=== PATIENT | female | born 1985 | race Caucasian/White ===

== ENCOUNTER 2017-11-21 17:25 | Emergency (ER) | payer MEDICAID ==
[~2017-11-21] VITALS: Ht 170.2 cm; Wt 96.1 kg
[~2017-11-21 17:25] MED LIST: PANT-47 PO; [UNRECOGNIZED DRUG - CODE] PO
[2017-11-21 18:02] VITALS: BP 127/78
[2017-11-21] MEDS ORDERED: KEN0.1O TP (19:36)
== END 2017-11-21 19:49 | disposition home or self-care (01) ==
LOC: ER 17:26
DX: L65.9 Nonscarring hair loss, unspecified (principal); Z90.49 Acquired absence of other specified parts of digestive tract; Z88.8 Allergy status to other drugs, medicaments and biological substances; Z79.2 Long term (current) use of antibiotics; Z79.899 Other long term (current) drug therapy
CPT/HCPCS: 99283

== ENCOUNTER 2019-05-04 23:02 | Emergency (ER) | payer MEDICAID ==
[~2019-05-04] VITALS: Ht 170.2 cm; Wt 82.7 kg
[2019-05-04 23:12] VITALS: BP 125/83
== END 2019-05-05 00:58 | disposition left against medical advice (07) ==
LOC: ER 23:03
DX: O03.9 Complete or unspecified spontaneous abortion without complication (principal); Z3A.01 Less than 8 weeks gestation of pregnancy; Z53.21 Procedure and treatment not carried out due to patient leaving prior to being seen by health care provider

== ENCOUNTER 2019-09-11 07:38 | Emergency (ER) | payer MEDICAID ==
[~2019-09-11] VITALS: Ht 170.2 cm; Wt 84.6 kg
[2019-09-11 07:47] VITALS: BP 141/72
[2019-09-11] MEDS ORDERED: AMOX500C2 PO (08:41)
== END 2019-09-11 08:48 | disposition home or self-care (01) ==
LOC: ER 07:39
DX: S00.412A Abrasion of left ear, initial encounter (principal); K08.89 Other specified disorders of teeth and supporting structures; K03.81 Cracked tooth; Z90.49 Acquired absence of other specified parts of digestive tract; Z88.8 Allergy status to other drugs, medicaments and biological substances; Z79.2 Long term (current) use of antibiotics; Z79.899 Other long term (current) drug therapy; X58.XXXA Exposure to other specified factors, initial encounter; Y93.89 Activity, other specified; Y92.009 Unspecified place in unspecified non-institutional (private) residence as the place of occurrence of the external cause; Y99.8 Other external cause status
CPT/HCPCS: 99283

== ENCOUNTER 2020-07-05 00:36 | Emergency (ER) | payer MEDICAID, OTHER ==
[~2020-07-05] VITALS: Ht 170.2 cm; Wt 74.1 kg
[2020-07-05 00:39] VITALS: BP 117/86
== END 2020-07-05 01:27 ==
LOC: ER 00:36
DX: S40.012A Contusion of left shoulder, initial encounter (principal); S09.90XA Unspecified injury of head, initial encounter; Z90.49 Acquired absence of other specified parts of digestive tract; Z88.8 Allergy status to other drugs, medicaments and biological substances; Z79.899 Other long term (current) drug therapy; W18.39XA Other fall on same level, initial encounter; Y93.89 Activity, other specified; Y92.89 Other specified places as the place of occurrence of the external cause; Y99.8 Other external cause status
CPT/HCPCS: 70450; 73030; 99284

== ENCOUNTER 2020-12-16 13:13 | Emergency (ER) | payer MEDICAID, OTHER ==
[~2020-12-16] VITALS: Ht 170.2 cm; Wt 74.1 kg
[2020-12-16 13:58] VITALS: BP 160/103
[2020-12-16] MEDS ORDERED: IBUP-1984 PO (14:12)
[2020-12-16] MEDS ORDERED: CLIN300C70 PO (14:12)
== END 2020-12-16 14:20 | disposition home or self-care (01) ==
LOC: ER 13:13
DX: K08.89 Other specified disorders of teeth and supporting structures (principal); Z90.89 Acquired absence of other organs; Z88.8 Allergy status to other drugs, medicaments and biological substances; Z79.2 Long term (current) use of antibiotics; Z79.899 Other long term (current) drug therapy
CPT/HCPCS: 99283

== ENCOUNTER 2021-10-08 22:39 | Emergency (ER) | payer MEDICAID, OTHER ==
[~2021-10-08] VITALS: Ht 170.2 cm; Wt 85.9 kg
[~2021-10-08 22:39] MED LIST changes: +[UNRECOGNIZED DRUG - CODE] PO; -[UNRECOGNIZED DRUG - CODE] PO
[2021-10-08 22:47] VITALS: BP 107/60
[2021-10-08 23:15] LABS: BASOPHILS % (AUTO) 0.4 % (0-1); EOSINOPHILS # (AUTO) 0.2 X10'3 (0-0.9); EOSINOPHILS % (AUTO) 2.2 % (0-6); HEMOGLOBIN 13.1 g/dl (12.0-16.0); LYMPHOCYTES # (AUTO) 3.4 X10'3 (1.1-4.8); LYMPHOCYTES % (AUTO) 33.8 % (21-51); MEAN CORPUSCULAR HEMOGLOBIN 31.2 PG (27.0-31.0); MEAN CORPUSCULAR HGB CONC 35.3 g/dL (33.0-36.5); MEAN CORPUSCULAR VOLUME 88.5 FL (78-98); MEAN PLATELET VOLUME 7.5 FL (7.4-10.4); MONOCYTES # (AUTO) 0.7 X10'3 (0-0.9); MONOCYTES % (AUTO) 7.3 % (2-12); NEUTROPHILS # (AUTO) 5.7 X10'3 (1.8-7.7); NEUTROPHILS % (AUTO) 56.3 % (42-75); PLATELET COUNT 271 X10'3 (140-440); RED BLOOD COUNT 4.19 X10'6 (4.20-5.60); RED CELL DISTRIBUTION WIDTH 12.5 % (11.5-14.5)
[2021-10-08 23:24] LABS: ALANINE AMINOTRANSFERASE 26 U/L (12-78); ALBUMIN 3.8 G/DL (3.4-5.0); ALBUMIN/GLOBULIN RATIO 1.1 (1.1-1.5); ALKALINE PHOSPHATASE 80 IU/L (46-116); ANION GAP 7 (8-16); ASPARTATE AMINO TRANSFERASE 19 U/L (10-37); BILIRUBIN,TOTAL 0.4 MG/DL (0.1-1.0); BLOOD UREA NITROGEN 19 MG/DL (7-18); BUN/CREATININE RATIO 25.3 (6.6-38.0); CALCIUM 8.4 MG/DL (8.5-10.1); CHLORIDE 106 MMOL/L (99-107); CREATININE 0.75 MG/DL (0.40-0.90); GLUCOSE 111 MG/DL (70-104); POTASSIUM 3.5 MMOL/L (3.5-5.1); SODIUM 144 MMOL/L (135-145); TOTAL PROTEIN 7.4 G/DL (6.4-8.2); eGFR 88 ML/MIN
[2021-10-08 23:27] LABS: LIPASE 121 U/L (73-393)
== END 2021-10-09 00:41 | disposition left against medical advice (07) ==
LOC: ER 22:39
DX: R07.89 Other chest pain (principal); Z53.21 Procedure and treatment not carried out due to patient leaving prior to being seen by health care provider
CPT/HCPCS: 36415; 80053; 83690; 84484; 85025; 93005

== ENCOUNTER 2022-08-14 10:32 | Emergency (ER) | payer MEDICAID ==
[~2022-08-14] VITALS: Ht 170.2 cm; Wt 90.0 kg
[2022-08-14 10:44] VITALS: BP 172/143
[2022-08-14] MEDS ORDERED: dexamethasone sod phosphate 10mg/ml inj IM STA (10:47)
[2022-08-14] MEDS ORDERED: famotidine 20mg tablet PO ONE (10:50)
[2022-08-14] MEDS ORDERED: diphenhydrAMINE 25mg capsule PO ONE (10:50)
== END 2022-08-14 11:16 | disposition home or self-care (01) ==
LOC: ER 10:33
DX: L23.5 Allergic contact dermatitis due to other chemical products (principal); Z88.8 Allergy status to other drugs, medicaments and biological substances; Z79.899 Other long term (current) drug therapy
CPT/HCPCS: 96372; 99283; J1100; Q0163

== ENCOUNTER → 2023-08-21 | Outpatient (CLI) | payer MEDICAID ==
[~2023-08-21] MED LIST changes: +[UNRECOGNIZED DRUG - CODE] PO; -[UNRECOGNIZED DRUG - CODE] PO
== END | disposition home or self-care (01) ==
LOC: RAD 14:55
PROVIDERS: ATTEND Nurse Practitioner Family
DX: K82.4 Cholesterolosis of gallbladder (principal); R10.11 Right upper quadrant pain
CPT/HCPCS: 76705